=== PATIENT | female | born 1960 | race Caucasian/White ===

== ENCOUNTER 2020-12-06 06:17 | Day surgery (SDC) | payer OTHER ==
[~2020-12-06] VITALS: Ht 165.1 cm; Wt 107.4 kg
[~2020-12-06 06:17] MED LIST: ALPR.5; Aspir 8181 MG PO; BENZ100A PO; BUPR150T2; ESTR2; ESTRADIOL1 M1 PO; FAMO20 PO; HYDCHL25 PO; OMEP20ER PO; POTA10T PO; PROACE100 PO; PROM25 PO; RXPROACE PO
[2020-12-06] MEDS ORDERED: CELEBREX200 MG PO (07:04)
--- NOTE | 2020-12-06 08:42 | NUR ---
12/06/20 0842 Natasha Gomez 0.5% BUPIVACAINE 1:200,000 MIXED IN OR BY RN
== END 2020-12-06 10:08 | disposition home or self-care (01) ==
LOC: ORSCSDS 06:17
PROVIDERS: Orthopaedic Surgery
PROC: 0SBC4ZZ Excision of Right Knee Joint, Percutaneous Endoscopic Approach (ICD-10-PCS; principal; 2020-12-06 07:30)
DX: S83.241A Other tear of medial meniscus, current injury, right knee, initial encounter (principal); M17.11 Unilateral primary osteoarthritis, right knee; I10 Essential (primary) hypertension; F17.210 Nicotine dependence, cigarettes, uncomplicated; K21.9 Gastro-esophageal reflux disease without esophagitis; E66.01 Morbid (severe) obesity due to excess calories; Z68.39 Body mass index [BMI] 39.0-39.9, adult; Z79.899 Other long term (current) drug therapy; Z79.82 Long term (current) use of aspirin
CPT/HCPCS: A9270; J0171; J0690; J1100; J1885; J2250; J2405; J2704; J3010; J7120

== ENCOUNTER 2021-08-05 06:41 | Day surgery (SDC) | payer OTHER ==
[~2021-08-05] VITALS: Ht 162.6 cm; Wt 108.3 kg
[~2021-08-05 06:41] MED LIST changes: +CELEBREX200 MG PO
[2021-08-05] MEDS ORDERED: PREGABALIN75 MG PO (07:14)
[2021-08-05] MEDS ORDERED: ROSUVASTATIN CA20 MG PO (07:14)
[2021-08-05] MEDS ORDERED: CHLO25B PO (07:15)
[2021-08-05] MEDS ORDERED: Chantix1 MG PO (07:16)
[2021-08-05] MEDS ORDERED: Ventolin/Prove6.7 GM INH (07:16)
== END 2021-08-05 09:27 | disposition home or self-care (01) ==
LOC: ORSCSDS 06:41
PROVIDERS: Internal Medicine Gastroenterology
PROC: 0DBM8ZX Excision of Descending Colon, Via Natural or Artificial Opening Endoscopic, Diagnostic (ICD-10-PCS; principal; 2021-08-05 08:00)
PROC: 0DBL8ZX Excision of Transverse Colon, Via Natural or Artificial Opening Endoscopic, Diagnostic (ICD-10-PCS; principal; 2021-08-05 08:00)
PROC: 0DBN8ZX Excision of Sigmoid Colon, Via Natural or Artificial Opening Endoscopic, Diagnostic (ICD-10-PCS; principal; 2021-08-05 08:00)
PROC: 0DBK8ZX Excision of Ascending Colon, Via Natural or Artificial Opening Endoscopic, Diagnostic (ICD-10-PCS; principal; 2021-08-05 08:00)
PROC: 0DB98ZX Excision of Duodenum, Via Natural or Artificial Opening Endoscopic, Diagnostic (ICD-10-PCS; 2021-08-05 08:00)
PROC: 0DB48ZX Excision of Esophagogastric Junction, Via Natural or Artificial Opening Endoscopic, Diagnostic (ICD-10-PCS; 2021-08-05 08:00)
PROC: 0DB68ZX Excision of Stomach, Via Natural or Artificial Opening Endoscopic, Diagnostic (ICD-10-PCS; 2021-08-05 08:00)
DX: R10.13 Epigastric pain (principal); R19.5 Other fecal abnormalities; K21.9 Gastro-esophageal reflux disease without esophagitis; K63.5 Polyp of colon; D12.3 Benign neoplasm of transverse colon; D12.4 Benign neoplasm of descending colon; D12.2 Benign neoplasm of ascending colon; F41.8 Other specified anxiety disorders; I10 Essential (primary) hypertension; Z79.82 Long term (current) use of aspirin; Z79.899 Other long term (current) drug therapy
CPT/HCPCS: 88305; 88342; J2704; J7120

== ENCOUNTER → 2023-12-12 | Outpatient (CLI) | payer OTHER ==
[~2023-12-12] MED LIST changes: +CHLO25B PO; +Chantix1 MG PO; +PREGABALIN75 MG PO; +ROSUVASTATIN CA20 MG PO; +Ventolin/Prove6.7 GM INH
[2023-12-17 22:33] LABS: CALPROTECTIN,FECAL 107 ug/g (<=49)
[2023-12-19 03:27] LABS: PANCREATIC ELASTASE,FECAL >800 ug/g (>=100)
== END ==
LOC: LAB 07:00 → LAB SHORT 07:00
PROVIDERS: Physician Assistant Medical
DX: K92.1 Melena (principal); R19.7 Diarrhea, unspecified
CPT/HCPCS: 82653; 83993; 84999

== ENCOUNTER → 2023-12-15 | Outpatient (CLI) | payer OTHER ==
[2023-12-20 13:03] LABS: OVA AND PARASITE,FECAL INTERP Negative (Negative)
== END | disposition home or self-care (01) ==
LOC: LAB SHORT 10:30 → LAB 10:30
PROVIDERS: Physician Assistant Medical
DX: K92.1 Melena (principal); R10.13 Epigastric pain; R19.7 Diarrhea, unspecified
CPT/HCPCS: 87177; 87209